=== PATIENT | male | born 2000 | race Two or more races ===

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

== ENCOUNTER 2021-08-30 22:43 | Emergency (ER) | payer SELFPAY ==
[~2021-08-30] VITALS: Ht 175.3 cm; Wt 98.7 kg
[2021-08-30] MEDS ORDERED: ONDANSETRON HCL 4MG/2ML INJ IV STA (23:29)
[2021-08-30] MEDS ORDERED: FENTANYL CITRATE/PF 50MCG/ML 2ML VIAL IV ONE (23:30)
[2021-08-31 00:02] LABS: BASOPHILS % 0.2 % (0.0-2.0); HEMATOCRIT. 48.5 % (42.0-52.0); HEMOGLOBIN. 16.1 g/dL (14.0-18.0); LYMPHOCYTES % 8.8 % (20.0-50.0); MEAN CORPUSCULAR HEMOGLOBIN 29.5 pg (28.0-32.0); MEAN CORPUSCULAR VOLUME 88.8 fL (80.0-94.0); MEAN PLATELET VOLUME 7.5 fl (7.4-10.4); MONOCYTES % 8.4 % (2.0-8.0); NEUTROPHILS % 82.6 % (40.0-76.0); PLATELET 300 x1000/uL (130-400); RED BLOOD CELL COUNT 5.46 mill/uL (4.7-6.1); RED CELL DISTRIBUTION WIDTH 13.1 % (11.6-14.6)
[2021-08-31 00:08] LABS: CHLORIDE 114 mEq/L (98-107)
[2021-08-31 03:30] VITALS: BP 102/45
[2021-08-31] MEDS ORDERED: IBUP-2029 MT (03:31)
[2021-08-31] MEDS ORDERED: LORA10CA MT (03:31)
== END 2021-08-31 03:50 | disposition home or self-care (01) ==
LOC: ER 22:43
DX: S02.2XXA Fracture of nasal bones, initial encounter for closed fracture (principal); Y08.89XA Assault by other specified means, initial encounter; Y93.89 Activity, other specified; Y92.89 Other specified places as the place of occurrence of the external cause; Y99.8 Other external cause status
CPT/HCPCS: 36415; 70450; 70486; 72125; 80048; 85025; 86850; 86900; 86901; 96374; 96375; 99291; J2405; J3010